=== PATIENT | female | born 1985 | race Caucasian/White ===

== ENCOUNTER 2020-10-12 14:38 | Emergency (ER) | payer OTHER, SELFPAY ==
[2020-10-12 16:17] VITALS: BP 98/56; PULSE 60; RESP 18; TEMP 36.4; O2SAT 97; BMI 24.0
[2020-10-12 17:32] VITALS: BP 101/53; PULSE 67; TEMP 36.8; O2SAT 100
[2020-10-12 18:16] LABS: COVID-19 Test Positive (Negative); IDNOW Serial# 08D9AD1C
--- NOTE | 2020-10-12 19:02 | ED_ITS ---
HPI - URI/Sore Throat General Chief Complaint: Fever Stated Complaint: fever Time Seen by Provider: 10/12/20 18:34 Source: patient Mode of arrival: ambulatory Limitations: no limitations History of Present Illness HPI Narrative: Patient with no significant past medical history received COVID vaccine on 07/14 missed the 2nd shot been to [place] in [place] now comes here for 4 days of body aches low-grade fever nasal congestion sore throat and dry cough and loss of taste other family member also sick with the same no significant shortness of breath patient is saturating 97% at room air Related Data Previous Rx's Medication Instructions Recorded codeine 10 mg-guaifenesin 100 mg/5 10 ml PO Q4-6H PRN #237 ml 10/12/20 mL oral liquid dexamethasone 6 mg tablet 6 mg PO DAILY #7 tab 10/12/20 (Decadron) Allergies Allergy/AdvReac Type Severity Reaction Status Date / Time No Known Allergies Allergy Verified 10/12/20 18:35 Review of Systems Review of Systems: Yes all other systems are reviewed and are negative [facility] Past Medical History Medical History No acute medical problems Surgical History No history of previous surgery Social History Social History Patient Tobacco Use Status: Current everyday Tobacco user Use of substances other than those prescribed or required for medical reasons: No Advance Directives: No Advance Directives Information Provided: Yes Patient : No Physical Exam Vital Signs: Vital Signs: Last Vital Signs Temp 98.2 F 10/12/20 17:32 Pulse 67 10/12/20 17:32 Resp 18 10/12/20 16:17 BP 101/53 L 10/12/20 17:32 Pulse Ox 100 10/12/20 17:32 Body Mass Index 24.0 Appearance: Alert. Oriented X3. No acute distress. Eyes: PERRLA ENT: Pharynx normal. Oral Mucosa moist Neck: Normal inspection. Neck supple. CVS: Normal heart rate and rhythm. Pulses normal. Respiratory: No respiratory distress. Equal air entry bilateral, no wheezing/rales/rhonchi Abdomen: Soft and nontender. Bowel sounds are present, no mass palpable, no CVA tenderness Skin: Skin warm and dry. Normal skin color. Normal skin turgor. Extremities: No lower extremity edema. No calf tenderness Neuro: Oriented X 3. MDM - URI/Sore Throat MDM Narrative Medical decision making narrative: Patient with mild symptoms of COVID-19 with no significant shortness of breath will discharge patient home on Decadron Lab Data Attestation: I reviewed the patient's lab results. Labs: Lab Results 10/12/20 Range/Units 17:58 COVID-19 (UBALDO) Positive A (Negative) COVID-19 Clin Com See Note Discharge Plan Discharge Clinical Impression: COVID-19 Patient Disposition: Home, Self-Care Instructions: COVID-19 (Coronavirus Disease 2019) (ED) Additional Instructions: Isolation and cautions as advised Take medicine as prescribed Cough syrup for severe cough Report to ER if not better or if have increased shortness of breath Aislamiento y precauciones seg?n lo recomendado [place]horn los medicamentos seg?n lo prescrito Jarabe para la tos para la tos severa Informe a la emory de emergencias si no mejora o si tiene mayor dificultad para respirar Prescriptions: New dexamethasone [Decadron] 6 mg tablet 6 mg PO DAILY Qty: 7 RF: 0 codeine-guaifenesin 10-100 mg/5 mL liquid 10 ml PO Q4-6H PRN (Reason: cough) Qty: 237 RF: 0 Interventions: ED Discharge Assessment Last Done: 10/12/20 20:10 Discharge Date/Time: 10/12/20 20:11
[2020-10-12] MEDS: dexAMETHasone 6 MG TABLET PO (19:07)
== END 2020-10-12 20:11 | disposition home or self-care (01) ==
PROVIDERS: Emergency Provider Internal Medicine; PCP Internal Medicine
DX: U07.1 COVID-19 (principal); R50.9 Fever, unspecified; F17.200 Nicotine dependence, unspecified, uncomplicated; Z79.899 Other long term (current) drug therapy; Z71.6 Tobacco abuse counseling
CPT/HCPCS: 36415; 87635; 99284; J8540